=== PATIENT | male | born 1975 ===

== ENCOUNTER 2017-04-26 19:00 | Emergency (ER) | payer OTHER ==
[2017-04-26 19:49] VITALS: BP 114/66; PULSE 80; RESP 16; TEMP 98.6; O2SAT 99
--- NOTE | 2017-04-26 20:32 | ED PDOC ---
HPI: Back Time Seen by Provider: 04/26/17 20:05 Chief Complaint (Nursing): Back Pain Chief Complaint (Provider): Back Pain History Per: Patient History/Exam Limitations: no limitations Onset/Duration Of Symptoms: Days (x3) Current Symptoms Are (Timing): Still Present Additional Complaint(s): 42-year-old male presents to the emergency department complaining of low back pain since Monday04/24/17. Patient denies any fall or injury. He tried taking Motrin yesterday without relief. Patient also denies urinary frequency, dysuria , and incontinence. PMD: None Past Medical History Reviewed: Historical Data, Nursing Documentation, Vital Signs Vital Signs: Last Vital Signs Temp 98.6 F 04/26/17 19:46 Pulse 80 04/26/17 19:46 Resp 16 04/26/17 19:46 BP 114/66 04/26/17 19:46 Pulse Ox 99 04/26/17 19:46 - Medical History PMH: No Chronic Diseases - Surgical History Surgical History: No Surg Hx - Family History Family History: States: No Known Family Hx - Living Arrangements Living Arrangements: With Family - Social History Current smoker - smoking cessation education provided: No Alcohol: Social Drugs: Denies - Home Medications Home Medications: Ambulatory Orders Medication Instructions Recorded Cyclobenzaprine [Cyclobenzaprine 10 mg PO TID PRN #20 tab 04/26/17 HCl] Naproxen [Naprosyn] 500 mg PO BID #20 tab 04/26/17 - Allergies Allergies/Adverse Reactions: Allergies Allergy/AdvReac Type Severity Reaction Status Date / Time No Known Allergies Allergy Verified 04/26/17 19:49 Review of Systems ROS Statement: Except As Marked, All Systems Reviewed And Found Negative Constitutional: Negative for: Fever, Chills Respiratory: Negative for: Cough Genitourinary Male: Negative for: Dysuria, Frequency, Incontinence, Hematuria Musculoskeletal: Positive for: Back Pain Neurological: Negative for: Headache, Dizziness Physical Exam - Reviewed Nursing Documentation Reviewed: Yes Vital Signs Reviewed: Yes - Physical Exam Appears: Positive for: Non-toxic, No Acute Distress Head Exam: Positive for: ATRAUMATIC, NORMAL INSPECTION, NORMOCEPHALIC Skin: Positive for: Normal Color Eye Exam: Positive for: Normal appearance Neck: Positive for: Normal, Painless ROM Back: Positive for: Other (Tenderness across the lower lumbar region, no palpable bony deformity, mild muscle spasm, negative bilateral straight leg raise, no CVA tenderness bilaterally) Neurologic/Psych: Positive for: Alert, Oriented, Gait (steady) - ECG O2 Sat by Pulse Oximetry: 99 (RA) Pulse Ox Interpretation: Normal - Other Rad L/S SPine x-ray X-Ray: Interpreted by Me, Viewed By Me X-Ray Interpretation: no fx, no dis Medical Decision Making Medical Decision Making: Initial Impression: 42-year-old with low back pain Time: 20:27 Plan: X-Ray of lumbar spine IM Toradol PO Flexeril PO Tylenol Patient is aware of x-ray results, all questions answered. He reports improvement pain after meds given. Prescriptions provided for Naprosyn and Flexeril. Patient was referred to clinic for follow-up. Scribe Attestation: Documented by Padmini Martin, acting as a scribe for Ernestina Fry PA-C Provider Scribe Attestation: All medical record entries made by the Scribe were at my direction and personally dictated by me. I have reviewed the chart and agree that the record accurately reflects my personal performance of the history, physical exam, medical decision making, and the department course for this patient. I have also personally directed, reviewed, and agree with the discharge instructions and disposition. Disposition - Clinical Impression Clinical Impression: Back strain - Patient ED Disposition Is Patient to be Admitted: No Counseled Patient/Family Regarding: Studies Performed, Diagnosis, Need For Followup, Rx Given - Disposition Referrals: [facility] [Outside] Disposition: Routine/Home Disposition Time: 22:07 Condition: STABLE Additional Instructions: Take prescription medicines as directed as needed for pain. Follow-up with clinic in 2-3 days. Prescriptions: Cyclobenzaprine [Cyclobenzaprine HCl] 10 mg PO TID PRN #20 tab PRN Reason: Muscle Spasm Naproxen [Naprosyn] 500 mg PO BID #20 tab Instructions: Back Pain (ED), Back Exercises (ED), Muscle Strain (ED) Forms: [facility] (Sinhala), [facility] ED School/Work Excuse Print Language: SWEDISH
--- NOTE | 2017-04-27 11:13 | RAD ---
PROCEDURE: Radiographs of the Lumbar Spine. HISTORY: Back Pain. No history of recent/ related trauma provided COMPARISON: No prior. FINDINGS: BONES: Normal alignment. No listhesis. No fracture. DISC SPACES: Unremarkable. OTHER FINDINGS: None. IMPRESSION: Unremarkable radiographs of the lumbar spine. Concordant results with the preliminary interpretation rendered by the emergency department physician procedure.
== END 2017-04-26 22:23 | disposition home or self-care (01) ==
LOC: H.ER 19:00
DX: S39.012A Strain of muscle, fascia and tendon of lower back, initial encounter (principal); Y92.89 Other specified places as the place of occurrence of the external cause
CPT/HCPCS: 72100; 96372; 99282; J1885